=== PATIENT | female | born 1965 | race Two or more races ===

== ENCOUNTER → 2024-12-18 | Emergency (ER) | payer OTHER ==
[~2024-12-18] VITALS: Ht 167.6 cm; Wt 76.7 kg
[2024-12-18 12:50] LABS: BASO % 0.5 % (0.1-1.2); EOS # 0.21 (0.04-0.54); EOS % 4.9 % (0.7-7.0); HEMATOCRIT 36.1 % (34.1-44.9); HEMOGLOBIN 12.2 g/dL (11.2-15.7); LYMPH % 30.2 % (19.3-53.1); MEAN CORPUSCULAR HEMOGLOBIN 29.5 pg (25.6-32.2); MONO # 0.34 (0.24-0.82); MONO % 7.9 % (4.7-12.5); NEUT # 2.43 (1.56-6.13); NEUT % 56.3 % (34.0-71.1); PLATELET COUNT 240 K/uL (163-369); RED BLOOD COUNT 4.14 M/uL (3.93-5.22); RED CELL DISTRIBUTION WIDTH 12.3 % (11.6-14.4)
[2024-12-18 13:18] LABS: ALT/SGPT 19 U/L (12-78); AST/SGOT 13 U/L (15-37); LDH 140 U/L (84-246); PHOSPHOKINASE CREATININE 76 U/L (26-192)
== END | disposition home or self-care (01) ==
LOC: ER 11:07
PROVIDERS: General Practice
DX: M94.0 Chondrocostal junction syndrome [Tietze] (principal); R07.89 Other chest pain; Z88.2 Allergy status to sulfonamides